=== PATIENT | male | born 1985 | race Caucasian/White ===

== ENCOUNTER 2020-07-14 18:00 | Emergency (ER) | payer MEDICAID ==
[~2020-07-14] VITALS: Ht 175.3 cm; Wt 62.5 kg
--- NOTE | 2020-07-14 18:20 | NUR ---
THIS IS A 34 YR OLD MALE WITH HX OF KIDNEY STONES. PER PT IN [place] 2 DAYS AGO AND DX WITH 1 MM KIDNEY STONE. PT STATES US WAS PERFORMED AND SENT HOME WITH RX FOR NORCO. PT STATES PAIN HAS GOT WORSE AND IS NOW RADIATING INTO HIS RIGHT TESTICLE. IV ACCESS OBTAINED AND AWAITING MD PARKINSON.
[2020-07-14] MEDS ORDERED: KETOROLAC 30 MG/1 ML ONE (18:45)
[2020-07-14] MEDS ORDERED: ONDANSETRON 2MG/ML, 2ML ONE (18:46)
[2020-07-14] MEDS ORDERED: HYDROmorphone 1 MG/ML, 1ML INJ ONE (18:46)
[2020-07-14] MEDS ORDERED: SODIUM CHLORIDE FLUSH 10ML SYR IVF ONE (19:00)
[2020-07-14] MEDS ORDERED: KETOROLAC 30 MG/1 ML IVPush ONE (19:00)
[2020-07-14] MEDS ORDERED: ONDANSETRON 2MG/ML, 2ML IVPush ONE (19:00)
[2020-07-14] MEDS ORDERED: HYDROmorphone 2 MG/ML, 1ML IVPush PRN (19:00)
[2020-07-14 19:19] LABS: ALBUMIN 3.7 g/dL (3.4-5.0); ANION GAP 4 mmol/L (5-15); CHLORIDE 112 mmol/L (98-107)
[2020-07-14 19:22] LABS: ALANINE AMINOTRANSFERASE 26 U/L (12-78); ALKALINE PHOSPHATASE 57 U/L (45-117); BILIRUBIN,TOTAL 0.5 mg/dL (0.2-1.0); CREATININE 1.02 mg/dL (0.7-1.3); TOTAL PROTEIN 6.2 g/dL (6.4-8.2)
[2020-07-14 19:24] LABS: BASOPHILS % (AUTO) 0 % (0-1); EOSINOPHILS % (AUTO) 1 % (1-7); LYMPHOCYTES % (AUTO) 32 % (22-44); MEAN CORPUSCULAR HEMOGLOBIN 28.6 pg (27.5-34.5); MEAN CORPUSCULAR HGB CONC 33.3 g/dL (33.2-36.2); MEAN PLATELET VOLUME 7.9 fL (7.4-10.4); MONOCYTES % (AUTO) 10 % (2-9); NEUTROPHILS % (AUTO) 56 % (42-75); PLATELET COUNT 199 x10^3/uL (130-400); RED BLOOD COUNT 5.24 x10^6/uL (4.38-5.82); RED CELL DISTRIBUTION WIDTH 13.7 % (9.4-14.8)
--- NOTE | 2020-07-14 19:28 | NUR ---
US IN ROOM NOW. PT STATES POSITIVE RELIEF OF PAIN IN KIDNEY BUT STATES THER IS STILL MILD PAIN IN TESTICLE. PT STATED TO THIS RN THAT HE WAS REPLACING A SHOCK ON HIS CAR WHEN ALL THIS STARTED. PT STATES THE PAIN IN HIS TESTICLE STARTS IN THE GROIN AND RADIATES DOWN TO THE TESTICLE TO A POINT THAT PATIENT STATES HE FEELS A LUMP.
[2020-07-14 19:29] LABS: MD NO
[2020-07-14 20:13] VITALS: BP 126/74
--- NOTE | 2020-07-14 20:20 | NUR ---
PT STATES POSITIVE RELIEF OF PAIN FROM MEDICATIONS
[2020-07-14] MEDS ORDERED: SODIUM CHLORIDE 0.9% 1,000ML IVBOLUS ONE (21:00)
[2020-07-14 21:07] LABS: MICROSCOPIC NOT IND
== END 2020-07-14 21:58 | disposition home or self-care (01) ==
LOC: ED 21:15
DX: N20.1 Calculus of ureter (principal)
CPT/HCPCS: 36415; 76770; 76870; 80053; 81003; 83690; 85025; 96361; 96374; 96375; 99285; J1170; J1885; J2405; J7030

== ENCOUNTER 2020-07-15 04:07 | Emergency (ER) | payer MEDICAID ==
[~2020-07-15] VITALS: Ht 175.3 cm; Wt 63.4 kg
[2020-07-15 04:12] VITALS: BP 128/77
[2020-07-15] MEDS ORDERED: KETOROLAC 60 MG/2 ML ONE (04:28)
[2020-07-15] MEDS ORDERED: KETOROLAC 60 MG/2 ML IM ONE (04:30)
[2020-07-15] MEDS ORDERED: KETOROLAC 30 MG/1 ML IM ONE (04:30)
--- NOTE | 2020-07-15 04:40 | NUR ---
PATIENT COMES IN WITH COMPLAINTS OF RIGHT SIDES FLANK PAIN THAT TRAVELS DOWN RIGHT GROIN. PATIENT STATES HE WAS HERE YESTERDAY AND DX WITH A KIDNEY STONE. PATIENT STATED THAT THE PAIN IS WORSE AND UNABLE TO TOLERATE IT. PATIENT HAS MEDICATION, BUT DECIDED NOT TO TAKE IT SO HE COULD DRIVE TO THE ER TO BE SEEN.
[2020-07-15] MEDS ORDERED: HYDROcodone/APAP 10/325 MG TABLET PO ONE (05:00)
[2020-07-15] MEDS ORDERED: HYDROcodone/APAP 10/325 MG TABLET ONE (05:05)
--- NOTE | 2020-07-15 05:50 | NUR ---
PATIENT AMBULATED OUT OF THE ER. PATIENT VERBALIZED UNDERSTANDING NOT TO DRIVE SINCE HE WAS GIVEN A NORCO FOR PAIN. PATIENT STATED THAT HE WAS GOING TO CALL AN UBER.
== END 2020-07-15 05:52 | disposition home or self-care (01) ==
LOC: ED 04:37
DX: N20.1 Calculus of ureter (principal); N23 Unspecified renal colic
CPT/HCPCS: 96372; 99284; J1885